=== PATIENT | female | born 1995 | race American Indian/Alaskan Native ===

== ENCOUNTER 2017-05-08 21:32 | Emergency (ER) | payer SELFPAY ==
[2017-05-08 22:02] VITALS: BP 111/82
== END 2017-05-08 22:10 | disposition left against medical advice (07) ==
LOC: ED 21:32
DX: O20.9 Hemorrhage in early pregnancy, unspecified (principal); Z3A.00 Weeks of gestation of pregnancy not specified; Z53.21 Procedure and treatment not carried out due to patient leaving prior to being seen by health care provider